=== PATIENT | female | born 1960 | race Caucasian/White ===

== ENCOUNTER → 2016-06-18 | Outpatient (CLI) | payer MEDICARE, OTHER ==
[2016-06-18 08:58] LABS: Anion Gap 12 mmol/L; Blood Urea Nitrogen 11 mg/dL (7-17); Calcium 9.2 mg/dL (8.4-10.2); Carbon Dioxide 23 mmol/L (22-30); Chloride 111 mmol/L (98-107); Cholesterol 143 mg/dL (<200); Glucose 142 mg/dL (74-99); HDL Cholesterol 31 mg/dL (40-60); Non-African American GFR(MDRD) 58 (>60 ml/min/1.73 sqM); Potassium 4.2 mmol/L (3.5-5.1); Sodium 146 mmol/L (137-145); Triglycerides 156 mg/dL (<150)
[2016-06-18 13:53] LABS: Hemoglobin A1C 6.4 % (4.2-6.1)
== END ==
LOC: LABWHC1 08:13
PROVIDERS: ATTEND Internal Medicine
DX: E78.4 Other hyperlipidemia (principal); E87.8 Other disorders of electrolyte and fluid balance, not elsewhere classified; R53.83 Other fatigue
CPT/HCPCS: 36415; 80048; 80061; 83036; 84443

== ENCOUNTER → 2024-10-07 | Outpatient (CLI) | payer MEDICARE, OTHER ==
--- NOTE | 2024-10-07 21:00 | CT ---
EXAMINATION TYPE: CT soft tissue neck w con CT DLP: 417 mGycm, Automated exposure control for dose reduction was used. DATE OF EXAM: 10/07/2024 4:17 PM COMPARISON: CT brain 11/30/2021. CLINICAL INDICATION:Female, 64 years old with history of R22.1 LOCALIZED SWELLING, MASS AND LUMP, NEC K; PHH, SWELLING AROUND THE EARS TECHNIQUE: Standard enhanced CT of the neck following intravenous administration of 100 cc of Isovue 300. Axial sections with coronal and sagittal reformats were obtained. FINDINGS: Brain: Encephalomalacia involving the bilateral frontal lobes, left temporal lobe, and left occipital lobe redemonstrated. Ex vacuo dilatation of the anterior horn of the right lateral ventricle. Orbits: Unremarkable Sinuses: Grossly unremarkable. Aplasia of the right frontal sinus. Suprahyoid Neck: The oropharynx, oral cavity, parapharyngeal and retropharyngeal spaces are clear and symmetric. The nasopharynx is unremarkable. Infrahyoid Neck: The larynx, hypopharynx, and supraglottic area are clear and symmetric. Parotid Glands: Unremarkable. Submandibular Glands: Unremarkable. Musculoskeletal: No acute osseous pathology. Redemonstration of right frontal craniotomy defect. Mild multilevel degenerative disc disease of the cervical spine. Lymph nodes: Enlarged left jugular lymph node at the level of the hyoid bone measuring up to 1.5 cm (series 3, image 45). Additional enlarged right jugular lymph node just superior to the hilar level measuring 1.5 cm (series 4, image 60). Vascular structures: Visualized major arteries are patent without evidence of aneurysm. Thoracic Inlet/airway: Airway is patent. Scattered streaky atelectatic changes within both lungs. Soft tissues/Thyroid: Thyroid and remainder of the soft tissues are unremarkable. No periarticular so ft tissue abnormality identified. Other: none. IMPRESSION: 1. Couple of enlarged nonspecific bilateral jugular lymph nodes. May be reactive. Consider follow-up exam in 3-6 months if there is continued clinical concern. No periarticular soft tissue abnormality identified. 2. Redemonstration of remote injuries to the bilateral frontal lobes, left occipital lobe, and left temporal lobe. [facility], , 10/07/2024 8:58 PM
== END | disposition home or self-care (01) ==
LOC: RADCTMAIN 14:42
PROVIDERS: ATTEND Family Medicine
DX: R59.0 Localized enlarged lymph nodes (principal)
CPT/HCPCS: 70491; 36415; Q9967